=== PATIENT | female | born 1995 | race Two or more races ===

== ENCOUNTER 2024-11-08 16:32 | Emergency (ER) | payer OTHER ==
[~2024-11-08] VITALS: Ht 149.9 cm; Wt 43.1 kg
[2024-11-08] MEDS ORDERED: ORPHENADRINE CITRATE 30 MG/ML AMPUL IM ONE (18:00)
[2024-11-08] MEDS ORDERED: KETOROLAC TROMETHAMINE 60 MG VIAL IM ONE ×2 (18:00→18:07)
[2024-11-08] MEDS ORDERED: ORPHENADRINE CITRATE 30 MG/ML AMPUL ONE (18:07)
[2024-11-08] MEDS ORDERED: NORFLEX100MG PO (18:14)
== END 2024-11-08 18:16 | disposition home or self-care (01) ==
LOC: ER 16:33
DX: M25.512 Pain in left shoulder (principal)